=== PATIENT | female | born 1995 | race African-American/Black ===

== ENCOUNTER 2022-07-05 17:21 | Emergency (ER) | payer OTHER, SELFPAY ==
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
--- NOTE | ~2022-07-05 | CT_ITS ---
Noncontrast CT scan of the cervical spine Technique: Multiple contiguous axial [address] images of the cervical spine were obtained and rec onstructed in 2D sagittal and coronal planes on the acquisition scanner. Dose reduction technique was used on this scan by utilizing automated exposure control, adjustment of the mA and/or kV according to patient size. Clinical History: Pain Findings: No fractures or dislocations. There is reversal of the normal cervical lordosis. The inter vertebral disc spaces are preserved. No prevertebral soft tissue swelling. Impression: No fracture or subluxation of the cervical spine. Reversal of the normal cervical lordosis. Reviewed, dictated and finalized at location . Impression: No fracture or subluxation of the cervical spine. Reversal of the normal cervical lordosis.
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
[2022-07-05 17:35] VITALS: BP 146/68; PULSE 76; RESP 16; TEMP 37.3; O2SAT 100
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
[2022-07-05] MEDS: MELOXICAM 7.5 MG TABLET PO (18:23)
[2022-07-05] MEDS: CYCLOBENZAPRINE HCL 5 MG TABLET PO (18:23)
[2022-07-05] MEDS: ACETAMINOPHEN 325 MG TABLET 650 MG PO (18:24)
--- NOTE | 2022-07-05 19:06 | PC.NURSE ---
Report received from SALINAS [place]. Assumed care of patient at this time.
--- NOTE | 2022-07-05 19:34 | PC.NURSE ---
Patient in CT at this time.
[2022-07-05 20:12] VITALS: BP 118/73; PULSE 66; RESP 17; TEMP 36.5; O2SAT 100
== END 2022-07-05 20:27 | disposition home or self-care (01) ==
PROVIDERS: Emergency Provider Physician Assistant
DX: R51.9 Headache, unspecified (principal); M79.644 Pain in right finger(s); M25.512 Pain in left shoulder; M25.511 Pain in right shoulder; M54.2 Cervicalgia; M54.50 Low back pain, unspecified; V89.2XXA Person injured in unspecified motor-vehicle accident, traffic, initial encounter; Y92.488 Other paved roadways as the place of occurrence of the external cause
CPT/HCPCS: 70450; 72125; 72131; 73140; 81025; 99284; A9270